=== PATIENT | female | born 1965 | race Two or more races ===

== ENCOUNTER 2016-10-19 09:49 | Emergency (ER) | payer BC, OTHER ==
[2016-10-19 10:04] VITALS: BMI 30.4
--- NOTE | 2016-10-19 10:28 | PDOC ---
History of Present Illness - History of Present Illness Initial Comments: 10/19/16 11:56 Patient is a 50 year old female with significant medical hx of CAD s/p catheterization and celiac disease who is presenting to the ED with shortness of breath since yesterday. Yesterday the patient woke up short of breath with pleuritic back pain that worsens with inspiration. She took two tylenol for her pain because she felt as if she was coming down with a cold; she reports throat pain and headache. Those symptoms have resolved, but she has developed some sob and pain in her back that was worse with deep breaths. The patient states she had similar symptoms one year ago when she came to the ED for the same complaint. Today the patient called her [employer] who referred the patient to the ED for rule out PE. No associated exertional chest pain/sob prior to yesterday. Denies chest pain, cough, hemoptysis, nausea, vomiting, lower extremity swelling , fever, and body aches. Denies hormonal therapies, oral contraceptives, or hx of PE. Washroom Attendant: Bin Adame MD ([facility]) Surgical Hx: x2 Allergies: NKDA <Saira Cervantes - Last Filed: 10/19/16 11:56> <Scott Au - Last Filed: 10/19/16 16:39> - General Chief Complaint: Shortness of Breath Stated Complaint: SOB, BACK PAIN (REFERRED) Time Seen by Provider: 10/19/16 10:20 Past History <Saira Cervantes - Last Filed: 10/19/16 11:56> - Past Medical History Asthma: Yes - Psycho/Social/Smoking Cessation Hx Anxiety: No Suicidal Ideation: No Smoking History: Never smoked Hx Alcohol Use: No Drug/Substance Use Hx: No Substance Use Type: None Hx Substance Use Treatment: No <Scott Au - Last Filed: 10/19/16 16:39> - Past Medical History Allergies/Adverse Reactions: Allergies Allergy/AdvReac Type Severity Reaction Status Date / Time Penicillins Allergy Rash Verified 10/19/16 10:01 Home Medications: Ambulatory Orders Aspirin [ASA -] 81 mg PO DAILY 10/19/16 Citalopram Hydrobromide [Celexa -] 20 mg PO DAILY 10/19/16 Clonazepam [KlonoPIN] 0.5 mg PO DAILY 10/19/16 Isosorbide Mononitrate [Imdur -] 30 mg PO DAILY 10/19/16 Metoprolol Tartrate [Lopressor -] 50 mg PO BID 10/19/16 Simvastatin 20 mg PO DAILY 10/19/16 Review of Systems - Review of Systems Comments:: 10/19/16 11:58 CONSTITUTIONAL: No reported: Fever, Chills, Diaphoresis, Generalized Weakness, Malaise, Loss of Appetite HEENT: Reported: Throat Pain No reported: Rhinorrhea, Nasal Congestion, Throat Swelling, Difficulty Swallowing, Mouth Swelling, Ear Pain, Eye Pain, Visual Changes CARDIOVASCULAR: No reported: Chest Pain, Syncope, Palpitations, Irregular Heart Rate, Lightheadedness, Peripheral Edema RESPIRATORY: Reported: Shortness of Breath No reported: Cough, SOB with Exertion, Orthopnea, Wheezing, Stridor, Hemoptysis GASTROINTESTINAL: No reported: Abdominal pain, Abdominal Distension, Nausea, Vomiting, Diarrhea, Constipation, Melena, Hematochezia GENITOURINARY: No reported: Dysuria, Frequency, Urgency, Hesitancy, Flank Pain, Genital Pain MUSCULOSKELETAL: Reported: Pleuritic Back Pain No reported: Myalgia, Arthralgia, Joint Swelling, Neck Pain SKIN: No reported: Rash, Itching, Pallor HEMEATOLOGIC/IMMUNOLOGIC: No reported: Easy Bleeding, Easy Bruising, Lymphadenopathy, Frequent infections ENDOCRINE: No reported: Unexplained Weight Gain, Unexplained Weight Loss, Heat Intolerance , Cold Intolerance NEUROLOGIC: Reported: Headache No reported: Focal Weakness, Paresthesias, Vertigo, Lightheadedness, Unsteady Gait, Seizure, Mental Status Changes, Incontinence PSYCHIATRIC: No reported: Anxiety, Depression <Billy,Saira - Last Filed: 10/19/16 11:56> *Physical Exam - Vital Signs Last Vital Signs Temp Pulse Resp BP Pulse Ox 97.9 F 63 19 116/69 98 10/19/16 10:01 10/19/16 10:01 10/19/16 10:01 10/19/16 10:01 10/19/16 10:01 - Physical Exam Comments: 10/19/16 11:58 GENERAL: The patient is awake, alert, and fully oriented, Nontoxic - in no acute distress. HEAD: Normocephalic, atraumatic. EYES: extraocular movements intact, sclera anicteric, conjunctiva clear. ENT: Normal voice, Moist mucous membranes. NECK: Normal range of motion, supple LUNGS: Breath sounds equal, clear to auscultation bilaterally. No wheezes, no rhonchi, no rales. HEART: Regular rate and rhythm, normal S1 and S2 without murmur, rub or gallop. ABDOMEN: Soft, nontender, normoactive bowel sounds. No guarding, no rebound. No CVA tenderness MSK: mild tenderness to L paraspinal muscles in thoracic region. EXTREMITIES: Normal range of motion, no edema. No clubbing or cyanosis. No cords, erythema, or tenderness. NEUROLOGICAL: No facial assymetry, Normal speech, PSYCH: Normal mood, normal affect. SKIN: Warm, Dry, normal turgor <Saira Cervantes - Last Filed: 10/19/16 11:56> - Vital Signs Last Vital Signs Temp Pulse Resp BP Pulse Ox 97.9 F 63 19 116/69 98 10/19/16 10:01 10/19/16 10:01 10/19/16 10:01 10/19/16 10:01 10/19/16 10:01 <Scott Au - Last Filed: 10/19/16 16:39> Heart Score/ECG Review - ECG Impressions Comment:: 10/19/16 10:39 Twelve-lead EKG was performed and reviewed by me. There is normal sinus rhythm with a rate of 58 The axis is normal. The intervals are normal. There is normal R wave progression There are no ST or T wave abnormalities. Impression: sinus bradycardia <Scott Au - Last Filed: 10/19/16 16:39> ED Treatment Course - LABORATORY CBC & Chemistry Diagram: 10/19/16 10:50 10/19/16 10:50 - RADIOLOGY Radiograph Interpretation: 10/19/16 11:11 Chest X-Ray Impression: No acute pathology. Reported By: Luke Au MD - Medications Given in the ED: ED Medications Discontinued Medications Generic Name Dose Route Start Last Admin Trade Name Freq PRN Reason Stop Dose Admin Acetaminophen 650 mg 10/19/16 10:39 10/19/16 10:54 Tylenol - PO 10/19/16 10:40 650 mg ONCE ONE Administration <Saira Cervantes - Last Filed: 10/19/16 11:56> - LABORATORY CBC & Chemistry Diagram: 10/19/16 10:50 10/19/16 10:50 <Scott Au - Last Filed: 10/19/16 16:39> Medical Decision Making - Medical Decision Making 10/19/16 10:37 50y F hx of nonobstructive CAD presents with 1 day of back pain that worsens with deep breaths associated w/ sob, without any asosciated cough, hemoptysis, chest pain. No Recent exertional sypmtoms, prior to today. differential includes MSK vs. pna vs PE will send blood work including trops, cbc, cmp, dimer will obtain EKG will give tylenol for pain. A portion of this note was documented by scribe services under my direction. I have reviewed the details of the note, within reason, and agree with the documentation with the following case summary and management plan written by me 10/19/16 12:25 The patient's blood work was reviewed it is unremarkable THE patient's troponin and d-dimer also negative. cxr negative for acute pathology suspect msk pain. will give some toradol and reassess pt complaining of feeling bloated - will give pepcid/maalox 10/19/16 16:38 The patient's troponin is negative 2 the patient is currently feeling improved I suspect that the patient's symptoms are muscular in nature. We'll have the patient follow-up with Dr. Nassar I discussed the physical exam findings, ancillary test results and final diagnoses with the patient. I answered all of the patient's questions. The patient was satisfied with the care received and felt comfortable with the discharge plan and treatment plan. The patient will call their primary care physician within 24 hours to arrange follow-up and will return to the Emergency Department with any new, persistent or worsening symptoms. <Scott Au - Last Filed: 10/19/16 16:39> *DC/Admit/Observation/Transfer - Attestations Scribe Attestion: 10/19/16 11:59 Documentation prepared by Saira Cervantes, acting as biomedical equipment tech for Scott Au MD. <Saira Cervantes - Last Filed: 10/19/16 11:56> - Discharge Dispostion Admit: No <Scott Au - Last Filed: 10/19/16 16:39> Diagnosis at time of Disposition: Back pain Qualifiers: Back pain location: thoracic back pain Chronicity: acute Back pain laterality: unspecified Qualified Code(s): M54.6 - Pain in thoracic spine - Discharge Dispostion Disposition: HOME Condition at time of disposition: Improved - Referrals Referrals: [facility] [Provider Group] - Patient Instructions Printed Discharge Instructions: DI for Thoracic Back Pain Additional Instructions: Return to the emergency department immediately with ANY new, persistent or worsening symptoms. Take Tylenol for your back pain. You MUST call and follow up with your [employer] for further evaluation of your symptoms. Results were discussed with you. Please make sure your doctor reviews the results of your emergency evaluation. Print Language: ESTONIAN
[2016-10-19] MEDS ORDERED: ACETAMINOPHEN 325 MG TABLET (FP) PO ONE (10:39)
[2016-10-19] MEDS ORDERED: ACETAMINOPHEN 325 MG TABLET (FP) ONE (10:41)
[2016-10-19 11:04] LABS: BASOPHIL 0.9 % (0-2.0); EOSINOPHIL 3.9 % (0-4.5); MCH 23.6 pg (25.7-33.7); MEAN CELL VOLUME 76.1 fl (80-96); MEAN PLT VOLUME 9.4 fl (7.5-11.1); NEUTROPHILS 65.6 % (42.8-82.8); PLATELET COUNT 170 K/MM3 (134-434); RDW 17.6 % (11.6-15.6); WHITE BLOOD COUNT 5.4 K/mm3 (4.0-10.0)
[2016-10-19 11:23] LABS: INR 1.06 (0.82-1.09); PROTHROMBIN TIME (PATIENT) 11.7 SEC (9.98-11.88)
[2016-10-19 11:34] LABS: ALBUMIN 3.8 g/dl (3.4-5.0); ANION GAP 8 (8-16); BILIRUBIN,TOTAL 0.4 mg/dL (0.2-1.0); CALCIUM 9.1 mg/dL (8.5-10.1); CO2 30 mmol/L (21-32); CREATININE 0.9 mg/dL (0.55-1.02); GLUCOSE,RANDOM 97 mg/dL (74-106); SGOT/AST 41 U/L (15-37); SGPT/ALT 75 U/L (12-78); TOT PROT 7.3 g/dl (6.4-8.2)
[2016-10-19 11:35] LABS: ALK PHOS 128 U/L (45-117)
[2016-10-19 11:55] LABS: TROPONIN I < 0.02 ng/ml (0.00-0.05)
[2016-10-19] MEDS ORDERED: KETOROLAC TROMETHAMINE 30 MG/1 ML VIAL IVPUSH ONE (12:02)
[2016-10-19] MEDS ORDERED: FAMOTIDINE 20 MG/50 ML IVPB 20 MG in PREMIX 50 IVPB ONE (12:04)
[2016-10-19] MEDS ORDERED: MAG HYDROX/AL HYDROX/SIMETH 355 ML ORAL.SUSP PO ONE (12:04)
[2016-10-19] MEDS ORDERED: KETOROLAC TROMETHAMINE 30 MG/1 ML VIAL ONE (12:08)
[2016-10-19] MEDS ORDERED: MAG HYDROX/AL HYDROX/SIMETH 30 ML UNIT-DOSE CUP ONE (12:08)
[2016-10-19] MEDS ORDERED: FAMOTIDINE 20 MG/50 ML IVPB 50 ML IVPB ONE (12:08)
[2016-10-19 12:28] LABS: URINE APPEARANCE CLEAR; URINE BILIRUBIN NEGATIVE (NEGATIVE); URINE BLOOD NEGATIVE (NEGATIVE); URINE COLOR LTYELLOW; URINE GLUCOSE (UA) NEGATIVE (NEGATIVE); URINE KETONE NEGATIVE (NEGATIVE); URINE NITRITE NEGATIVE (NEGATIVE); URINE PROTEIN NEGATIVE (NEGATIVE); URINE UROBILINOGEN NEGATIVE E.U./dl (0.2-1.0)
[2016-10-19 12:29] LABS: URINE LEUK ESTERASE 2+ (NEGATIVE)
[2016-10-19 12:47] VITALS: PULSE 58
[2016-10-19 12:48] LABS: URINE RBC 7 /hpf (0-3); URINE WBC 12 /hpf (3-5)
[2016-10-19 16:18] LABS: TROPONIN I < 0.02 ng/ml (0.00-0.05)
[2016-10-19 16:43] VITALS: BP 123/64
[2016-10-19 16:47] VITALS: TEMP 98.2
--- NOTE | 2016-10-19 17:30 | EKG ---
Test Reason : Blood Pressure : / mmHG Vent. Rate : 058 BPM Atrial Rate : 058 BPM P-R Int : 160 ms QRS Dur : 076 ms QT Int : 438 ms P-R-T Axes : 048 051 054 degrees QTc Int : 429 ms SINUS BRADYCARDIA OTHERWISE NORMAL ECG WHEN COMPARED WITH ECG OF 18-OCT-2015 19:02, NO SIGNIFICANT CHANGE WAS FOUND Confirmed by DINORA LEHMAN MD ([id number]) on 10/19/2016 5:30:11 PM Referred By: Confirmed By:DINORA LEHMAN MD
== END 2016-10-19 16:50 | disposition home or self-care (01) ==
LOC: JER 09:49
PROC: 3E033GC Introduction of Other Therapeutic Substance into Peripheral Vein, Percutaneous Approach (ICD-10-PCS; principal; 2016-10-19)
PROC: 3E0333Z Introduction of Anti-inflammatory into Peripheral Vein, Percutaneous Approach (ICD-10-PCS; 2016-10-19)
DX: M54.6 Pain in thoracic spine (principal); I25.10 Atherosclerotic heart disease of native coronary artery without angina pectoris; Z98.61 Coronary angioplasty status; K90.0 Celiac disease; I10 Essential (primary) hypertension; J45.909 Unspecified asthma, uncomplicated
CPT/HCPCS: 36415; 71010-TC; 80053; 81003; 81015; 82550; 84484; 85025; 85379; 85610; 93005; 93010; 99284-25